=== PATIENT | male | born 1975 | race Hispanic/Latino ===

== ENCOUNTER 2023-04-25 09:51 | Emergency (ER) | payer SELFPAY ==
[~2023-04-25] VITALS: Ht 182.9 cm; Wt 120.3 kg
[2023-04-25] MEDS ORDERED: HYDROCHLOROTHIA25 MG PO (11:38)
[2023-04-25] MEDS ORDERED: TOPROL XL100 MG PO (11:38)
[2023-04-25 11:46] VITALS: BP 139/91
== END 2023-04-25 11:48 | disposition home or self-care (01) ==
LOC: ED 09:51
DX: I10 Essential (primary) hypertension (principal)
CPT/HCPCS: 99283